=== PATIENT | female | born 1980 | race Caucasian/White ===

== ENCOUNTER 2016-09-01 12:08 | Inpatient (IN) ==
[2016-09-01] MEDS ORDERED: BUTORPHANOL 2 MG/ML VIAL IV PRN (12:48)
[2016-09-01] MEDS ORDERED: MEPERIDINE 50 MG/1 ML VIAL IV PRN (12:48)
[2016-09-01] MEDS ORDERED: ONDANSETRON 4 MG/2 ML VIAL IV PRN ×2 (12:48→20:07)
[2016-09-01 12:50] LABS: Basophils % 0.3 % (0.0-0.8); Eosinophils # 1.8 10*3/uL (0.0-0.87); Eosinophils % 12.7 % (0.00-10.9); Hematocrit 37.9 VOL% (35.7-47.0); Hemoglobin 12.9 GM/DL (12.0-16.0); Immature Granulocytes % 0.8 %; Immature Granulocytes Absolute 0.11 #; Lymphocytes # 2.4 10*3/uL (1.4-4.0); Lymphocytes % 17.1 % (21.3-54.2); Mean Corpuscular Hemoglobin 34 PG (27-34); Mean Corpuscular Volume 99.7 FL (87-102); Mean Platelet Volume 12.1 FL (9.6-12.0); Monocytes # 0.7 10*3/uL (0.11-0.8); Monocytes % 5.3 % (1.7-12.7); Neutrophils % 63.8 % (38.7-73.9); Platelet Count 188 T/CUMM (130-400); Red Cell Distribution Width 12.5 % (9.3-17.3)
[2016-09-01] MEDS ORDERED: MAGNESIUM SULF RIDER 100 ML IV ONE (12:50)
[2016-09-01 12:56] LABS: Apearance,Urine CLEAR (Clear); Bilirubin,Urine Negative (Negative); Blood, Urine Large mg/dL (Negative); Glucose,Urine (UA) Negative (Negative); Ketones,Urine Negative (Negative); Mucus,Urine Occasional /LPF (Occasional); Nitrite,Urine Negative (Negative); Protein,Urine 100 MG/DL; RBC,Urine 152 /HPF (0-4); Squamous Epithelial Cell,Urine Occasional /HPF (0-10); Urine Color Yellow (Yellow); Urine Specific Gravity 1.017 (1.001-1.035); Urine Urobilinogen < 2.0 EU/DL (0.2-1.0); WBC,Urine 2 /HPF (0-6)
--- NOTE | 2016-09-01 12:57 | OB/GYN History & Physical ---
History of Present Illness Chief complaint: with no care, leaking for 2 days, BP up for a while History of present illness: Ms. Lieberman is a 36 year old female Pt reports confirmation of July 22 at [place] [facility] Has Nexplanon for 8 yrs now. Periods monthly. BPs are 180s. Pt denies other symptoms of PIH. Labs pending at this time. Admits marijuana use but denies other drugs or alcohol use. Denies other health problems. Smokes irregularly. 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 - Constitutional General appearance: no acute distress, over weight - Head Head exam: Present: normal inspection, normocephalic - Eye Eye exam: Present: EOMI - Respiratory Respiratory exam: Present: clear to auscultation bilaterally - Cardiovascular Cardiovascular exam: Present: regular rate and rhythm - GI/Abdominal GI/Abdominal exam: Present: soft (gravid uterus midline) - Extremities Exam Extremities exam: Present: edema - Neurological Exam Neurological exam: Present: alert, oriented X3 - Psychiatric Psychiatric exam: Present: normal affect, normal mood - Skin Skin exam: Present: normal color, warm Assessment and Plan (1) PIH ( induced hypertension), antepartum Status: Acute Assessment and plan: PIH labs, start MgSO4 until hypertension clarified. US in progress. Drug screen pending. Further recommendations once we have all results. Current Visit: Yes (2) No care in current in third trimester Status: Acute Current Visit: Yes Results - Labs CBC & BMP: 09/01/16 12:41 Lab Results: I have reviewed the past 24 hour labs
[2016-09-01 13:01] LABS: INR 0.8; PT Patient Result 8.7 SECS; Partial Thromboplastin Time 31.8 SECS (0-40)
[2016-09-01 13:03] LABS: Barbiturates Screen,Urine Negative (Negative); Benzodiazepines Screen,Urine Negative (Negative); Cannabinoid Screen,Urine Positive (Negative); Opiate Screen,Urine Negative (Negative); Phencyclidine Screen,Urine Negative (Negative)
[2016-09-01 13:11] LABS: Band Neutrophils 1 % (0-10); Eosinophils 18 % (0-10); Giant Platelets Few; Hypochromasia Slight; Lymphocytes 17 % (20-55); Platelet Estimate Normal; Segmented Neutrophils 61 % (50-85); Total Cells Counted 100
[2016-09-01 13:21] LABS: Alanine Aminotransferase 24 U/L (13-56); Albumin 2.3 G/DL (3.4-5.0); Alkaline Phosphatase 198 U/L (45-117); Aspartate Amino Transferase 22 U/L (0-37); Bilirubin,Total < 0.39 MG/DL (0.2-1.0); Blood Urea Nitrogen 14 MG/DL (7-18); Calcium 8.3 MG/DL (8.5-10.1); Glucose 90 MG/DL (74-106); Osmolality,Calculated 277.5 MOS/KG (273-304); Potassium 4.8 MMOL/L (3.5-5.1); Sodium 139 MMOL/L (136-145); Total Protein 5.6 G/DL (6.4-8.3); Uric Acid 5.4 MG/DL (2.6-6.0)
[2016-09-01] MEDS ORDERED: MAGNESIUM SULF DRIP 40 GM/1,000 ML ML IV SCH (13:30)
[2016-09-01] MEDS ORDERED: OXYTOCIN/LR 20 UNIT/1,000 ML BAG IV SCH (13:30)
[2016-09-01] MEDS: LACTATED RINGERS 1,000 ML IV SCH ×3 (13:35→18:30)
--- NOTE | 2016-09-01 13:39 | Ultrasound Report ---
History: No care. Rupture of membranes Date: 09/01/2016 Study: Obstetrical ultrasound greater than 14 weeks Comparison exam: No previous this Real-time ultrasound images are captured and archived. There is a single intrauterine fetus in vertex presentation with a heart rate of 138 bpm. The placenta is anterior without previa. There is oligohydramnios with an REENA of 3.1 cm. The maternal cervix is not well seen. There is a three-vessel umbilical cord. The four-chamber heart view, bladder, and partially visualized kidneys are unremarkable. The spine and cord insertion site are not well seen. Intracranial measurements are not submitted, though no gross intracranial abnormality is seen where visualized. There are no masses of the maternal myometrium. The maternal ovaries are not seen because of bowel gas and gestation size. BPD 97 mm or 39 weeks 4 days Head circumference 347 mm or 40 weeks 2 days Abdominal circumference 360 mm or 39 weeks 6 days Femur length 78 mm or 39 weeks 5 days Impression: Single intrauterine fetus in vertex presentation with an ultrasound gestational age of 39 weeks 6 days +/- 20 days, CORNELIO September 02, 2016, and EFW 3918 g +/- 587 g. motion and cardiac activity are noted during real-time sonography There is oligohydramnios with REENA of 3.1 cm PROCEDURE INTERPRETED AT [facility] DEPARTMENT OF RADIOLOGY Final Report Signed by: Dr. Tracy Muniz
[2016-09-01] MEDS: AMPICILLIN INJ 2,000 MG in SODIUM CHLORIDE 0.9% 100 ML IV SCH ×2 (13:45→18:58)
[2016-09-01] MEDS ORDERED: LACTATED RINGERS 500 ML IV ONE (13:54)
[2016-09-01] MEDS ORDERED: LACTATED RINGERS 1,000 ML IV ONE (13:54)
[2016-09-01] MEDS ORDERED: ePHEDrine 50 MG/ML AMP IV PRN (13:54)
[2016-09-01] MEDS ORDERED: LACTATED RINGERS 1,000 ML IV SCH ×2 (14:00)
[2016-09-01] MEDS ORDERED: FAMOTIDINE 20 MG/2 ML VIAL IV ONE (14:18)
[2016-09-01] MEDS ORDERED: CITRIC ACID/SODIUM CITRATE 30 ML UDCUP PO ONE (14:19)
[2016-09-01] MEDS ORDERED: fentaNYL 2 MCG/ROPIV 0.2% EPID 150 ML EPIDURAL ONE (14:46)
[2016-09-01] MEDS ORDERED: miSOPROStol 200 MCG TABLET ONE (19:18)
[2016-09-01] MEDS ORDERED: HYDROCORTISONE 2.5% RECTAL CREAM 30 GM TUBE TOP PRN (20:07)
[2016-09-01] MEDS ORDERED: BISACODYL 10 MG SUPP RECTAL PRN (20:07)
[2016-09-01] MEDS ORDERED: BENZOCAINE 20%/MENTHOL 0.5% SPRAY 56 GM CAN TOP PRN (20:07)
[2016-09-01] MEDS ORDERED: OXYTOCIN/LR 20 UNIT/1,000 ML BAG IV ONE (20:07)
[2016-09-01] MEDS ORDERED: WITCH HAZEL PADS 100/JAR TOP PRN (20:07)
[2016-09-01] MEDS ORDERED: DIPH/TET/ACEL PERT BOOSTER VACCINE 0.5 ML VIAL IM ONE (20:07)
[2016-09-01] MEDS ORDERED: ACETAMINOPHEN 325 MG TABLET PO PRN (20:07)
[2016-09-01] MEDS ORDERED: MEASLES/MUMPS/RUBELLA VACCINE 0.5 ML VIAL SUBCUT ONE (20:07)
[2016-09-01] MEDS ORDERED: LANOLIN 50% CREAM 0.3 OZ TUBE TOP PRN (20:07)
[2016-09-01] MEDS ORDERED: oxyCODONE/ACETAMINOPHEN 5-325 MG TABLET PO PRN (20:07)
[2016-09-01] MEDS ORDERED: RHO(D) IMMUNE GLOBULIN 300 MCG SYRINGE IM ONE (20:07)
--- NOTE | 2016-09-01 20:13 | Operative Note ---
Date of procedure: 09/01/16 Pre-op diagnosis: 1. term with no care; 2. + marijuana Post-op diagnosis: same Procedure: Delivery note. Patient progressed to complete and pushing with labor epidural and Pitocin augmentation and delivered a viable 7#2oz female over intact perineum, right medial labial superficial laceration. Baby was bulb suctioned on the perineum. Cord was doubly clamped and cut. Baby was handed to personnel in attendance. Cord blood was collected and placenta was delivered intact. Figure of 8 stitch of 3-0 chromic to distal aspect of medial labial laceration for hemostasis. Fundus is firm. Estimated blood loss 500 mL. Complications none. Patient is stable and the baby is stable. Anesthesia: epidural Surgeon / Physician: Sangeeta Harrington Estimated blood loss: other (500cc) Specimens: other (placenta to path; cord blood to lab) Condition: stable Disposition: no change Results - Labs CBC & BMP: 09/01/16 12:41 09/01/16 12:41 Discharge Plan - Discharge Medications No Action No Known Home Medications [No Known Home Medications] - Follow Up or Referral - Forms/Instructions
[2016-09-01] MEDS: LABETALOL 200 MG TABLET PO SCH (20:40)
[2016-09-01] MEDS: DOCUSATE SODIUM 100 MG CAPSULE PO SCH (22:01)
[2016-09-01 23:57] LABS: HIV Antigen/Antibody Result Nonreactive (Nonreactive); Hepatitis B Surface Ag Quant 0.15 Index; Hepatitis B Surface Ag Result Negative (Negative)
[2016-09-02] MEDS: IBUPROFEN 800 MG TABLET PO PRN ×2 (04:34→15:49)
[2016-09-02 05:26] LABS: Basophils % 0.2 % (0.0-0.8); Eosinophils # 1.3 10*3/uL (0.0-0.87); Eosinophils % 7.5 % (0.00-10.9); Hematocrit 35.1 VOL% (35.7-47.0); Hemoglobin 12.1 GM/DL (12.0-16.0); Immature Granulocytes % 0.8 %; Immature Granulocytes Absolute 0.14 #; Lymphocytes # 2.9 10*3/uL (1.4-4.0); Lymphocytes % 16.8 % (21.3-54.2); Mean Corpuscular HGB Conc 34.5 GM/DL (32-36); Mean Corpuscular Hemoglobin 34 PG (27-34); Mean Corpuscular Volume 98.3 FL (87-102); Mean Platelet Volume 12.4 FL (9.6-12.0); Monocytes % 5.9 % (1.7-12.7); Neutrophils # 11.7 10*3/uL (1.4-7.4); Neutrophils % 68.8 % (38.7-73.9); Platelet Count 158 T/CUMM (130-400); Red Blood Count 3.57 MC/CUMM (3.8-5.5); Red Cell Distribution Width 12.4 % (9.3-17.3)
--- NOTE | 2016-09-02 07:41 | Anesthesia Post-Op ---
Anesthesia Post OP - Post Ansesthetic Evaluation Patient seen in post op: Yes Resp: within normal limits CV: within normal limits Mental: within normal limits Temp: within normal limits [id number]: within normal limits Nausea and Vomiting: within normal limits Pain: within normal limits
[2016-09-02] MEDS: DOCUSATE SODIUM 100 MG CAPSULE PO SCH ×2 (09:01→20:25)
[2016-09-02] MEDS: LABETALOL 200 MG TABLET PO SCH ×2 (09:02→20:25)
--- NOTE | 2016-09-02 09:20 | OB/GYN Progress Note ---
Assessment and Plan (1) PIH ( induced hypertension), antepartum Status: Acute Assessment and plan: Current Visit: Yes (2) No care in current in third trimester Status: Acute Current Visit: Yes (3) Normal vaginal delivery Status: Acute Assessment and plan: Routine care Current Visit: Yes [employer]IN[employer]IMAL - PN: Subj Interval history: PPD#1 Doing well. Exam [employer]ERIN[employer]IAN [employer]IMAL - Constitutional Vitals: Vital Signs Temp Pulse Resp BP Pulse Ox 09/02/16 09:14 20 09/02/16 08:00 98.2 F 97 H 20 151/86 98 09/02/16 07:54 20 09/02/16 04:00 97.6 F 97 H 18 141/64 99 09/02/16 02:00 18 09/02/16 00:40 99.1 F 92 H 20 152/82 100 09/02/16 00:00 99.1 F 98 H 20 159/76 99 09/01/16 23:40 88 20 145/87 99 09/01/16 22:40 89 20 160/81 99 09/01/16 22:08 83 20 157/85 99 09/01/16 21:40 97.9 F 95 H 18 127/88 99 09/01/16 20:00 97.5 F L 82 18 161/82 09/01/16 16:00 98.0 F 95 H 18 144/83 General appearance: no acute distress, over weight - Head Head exam: Present: normal inspection, normocephalic - Eye Eye exam: Present: EOMI - Respiratory Respiratory exam: Present: clear to auscultation bilaterally - Cardiovascular Cardiovascular exam: Present: regular rate and rhythm - GI/Abdominal GI/Abdominal exam: Present: soft (fundus firm, nontender) - Extremities Exam Extremities exam: Present: normal inspection - Neurological Exam Neurological exam: Present: alert, oriented X3 - Psychiatric Psychiatric exam: Present: normal affect, normal mood - Skin Skin exam: Present: normal color, warm Results - Labs CBC & BMP: 09/02/16 05:12 09/01/16 12:41 Lab Results: I have reviewed the past 24 hour labs
[2016-09-02] MEDS: oxyCODONE/ACETAMINOPHEN 5-325 MG TABLET PO PRN ×2 (15:52→22:29)
[2016-09-02] MEDS ORDERED: PROMETHAZINE 25 MG/1 ML VIAL IM PRN (23:17)
[2016-09-02] MEDS ORDERED: ONDANSETRON 4 MG TABLET PO PRN (23:17)
[2016-09-02 23:26] LABS: Barbiturates Screen,Urine Negative (Negative); Benzodiazepines Screen,Urine Negative (Negative); Cannabinoid Screen,Urine Positive (Negative); Opiate Screen,Urine Negative (Negative); Phencyclidine Screen,Urine Negative (Negative)
[2016-09-03 08:08] VITALS: BP 153/88
[2016-09-03] MEDS: DOCUSATE SODIUM 100 MG CAPSULE PO SCH (08:53)
[2016-09-03] MEDS: LABETALOL 200 MG TABLET PO SCH (08:53)
[2016-09-03] MEDS: IBUPROFEN 800 MG TABLET PO PRN (09:44)
--- NOTE | 2016-09-03 09:50 | Discharge Summary ---
Hospital Course - Hospital Course Hospital Course: Pt presented to L&D with no care. She had without complications. Her course has been unremarkable except that she's done very well. Diagnosis - Discharge Diagnosis (1) PIH ( induced hypertension), antepartum Status: Acute (2) No care in current in third trimester Status: Acute (3) Normal vaginal delivery Status: Acute Specialty Discharge - Follow Up or Referrals Follow up with: Sangeeta Harrington DO [Physician] - Discharge Plan - Discharge Data Disposition: Disch To Home/Self Care Condition at Discharge: Stable Discharge Diet: regular diet Activity: other (pelvic rest x 6 wks) Hygiene: may shower Weight Bearing at Discharge: full weight bearing Driving: no restrictions (if not taking narcotics) Contact your physician if you experience:: fever over 101, Difficulty voiding, Redness or swelling, Nausea/Vomiting, Shortness of breath, Bleeding, pain uncontrolled by pain medications - Discharge Medications New oxyCODONE/ACETAMINOPHEN 5-325 [Percocet 5-325] 1 tablet PO Q6H PRN #10 tablet PRN Reason: Pain Severe (8-10) Ibuprofen Tab [Motrin Tab] 800 mg PO Q6H PRN #30 tablet PRN Reason: Pain Moderate (4-7) - Follow Up or Referral Follow Up: Sangeeta Harrington DO [Physician] - (6 wks ) - Forms/Instructions Instructions: Perineal Care (DC), Bleeding (DC) Exam - Constitutional Vitals: Period Temp Pulse Resp BP Sys/Reyes Pulse Ox Last 24 Hr 97.4 F-98.3 F 80-105 16-20 123-166/71-95 96-100 General appearance: normal weight, no acute distress - Head Head exam: Present: normal inspection, normocephalic - Eye Eye exam: Present: EOMI - Respiratory Respiratory exam: Present: clear to auscultation bilaterally - Cardiovascular Cardiovascular exam: Present: regular rate and rhythm - GI/Abdominal GI/Abdominal exam: Present: soft (fundus firm, nontender) - Extremities Exam Extremities exam: Present: normal inspection - Neurological Exam Neurological exam: Present: alert, oriented X3 - Psychiatric Psychiatric exam: Present: normal affect, normal mood - Skin Skin exam: Present: normal color, warm Discharge Results Labs on day of discharge: Labs from last 24 hours 09/02/16 22:45 Urine Opiates Screen Negative Ur Barbiturates Screen Negative Ur Phencyclidine Scrn Negative U Amphetamine/Methamph Negative U Benzodiazepines Scrn Negative U Cocaine Metab Screen Negative U Cannabinoids Screen Positive H DS: Provider Date of admission: 09/01/16 12:48 Primary care physician: . No PCP Attending physician on admission: Sangeeta Harrington DO Consults: 09/01/16 13:10 Consult to Dietitian [CONS] Routine Reason for Dietitian: Dietary Consult 09/01/16 20:07 Consult to [employer] Architect [CONS] Routine Consult [employer] Architect: Breast Feeding 09/01/16 20:09 Consult to Case Mgmt/Social Srvs [CONS] Routine Reason for Case Mgmt/Social Srvs: Other Consult Comment: no care, positive for cannabinoids Discharging clinician: Sangeeta Harrington DO Expected date of discharge: 09/03/16
[2016-09-03] MEDS ORDERED: BUTALBITAL/ACETAMIN/CAFFEINE 50-325-40 MG TABLET PO ONE (10:52)
[2016-09-03] MEDS ORDERED: SUMAtriptan 6 MG/0.5 ML VIAL SUBCUT STA (10:52)
--- NOTE | 2016-09-04 11:18 | Pathology Report from [facility] ---
[facility] ACCESSION # : [id number] PATIENT NAME : Kerwin Lieberman ORDERING DR : MENA ROA, CLINICAL HX: IUP @ 39.6 wks x late U/S; no care, induced HTN POST-OP DX: Same SPECIMEN INFO: Placenta GROSS DESCRIPTION: Received fresh labeled KERWIN LIEBERMAN is a 647 gm placenta measuring 22.5 x 17.5 x 2.5 cm with an attached accessory lobe measuring 8.0 x 7.5 x 1.0 cm. The membranes are pink alvarado and translucent. The umbilical cord measures 43.0 cm, contains three vessels and is eccentrically inserted. The maternal surface displays hemorrhagic mildly disrupted cotyledons with no abnormalities grossly appreciated upon sectioning. Sections submitted A- membranes and cord, B- and maternal surfaces. DIAGNOSIS FOR KERWIN LIEBERMAN: Three vessel umbilical cord.Unremarkable placental membranes.High placental weight placenta (647 gm) with unremarkable third trimester placental chorionic villi. COLLECTED DATE: 09/02/2016 [facility] REPORT DATE: 09/04/2016 ELECTRONICALLY SIGNED BY: Kaushik Bazzi M.D. 09/04/2016 - 10:51:36 [facility]
--- NOTE | 2016-09-06 03:10 | Pathology Report from [facility] ---
[facility] ACCESSION # : [id number] PATIENT NAME : Kerwin Lieberman ORDERING DR : MENA ROA, CLINICAL HX: IUP @ 39.6 wks x late U/S; no care, induced HTN POST-OP DX: Same SPECIMEN INFO: Placenta GROSS DESCRIPTION: Received fresh labeled KERWIN LIEBERMAN is a 647 gm placenta measuring 22.5 x 17.5 x 2.5 cm with an attached accessory lobe measuring 8.0 x 7.5 x 1.0 cm. The membranes are pink alvarado and translucent. The umbilical cord measures 43.0 cm, contains three vessels and is eccentrically inserted. The maternal surface displays hemorrhagic mildly disrupted cotyledons with no abnormalities grossly appreciated upon sectioning. Sections submitted A- membranes and cord, B- and maternal surfaces. DIAGNOSIS FOR KERWIN LIEBERMAN: Three vessel umbilical cord.Unremarkable placental membranes.High placental weight placenta (647 gm) with unremarkable third trimester placental chorionic villi. COLLECTED DATE: 09/02/2016 [facility] REPORT DATE: 09/04/2016 ELECTRONICALLY SIGNED BY: Kaushik Bazzi M.D. 09/04/2016 - 10:51:36 [facility]
== END 2016-09-03 13:00 | disposition home or self-care (01) | DRG 774 ==
LOC: N.LDOUT 12:08 → N.LD 12:12 → N.OB 21:40
PROVIDERS: ADMIT Obstetrics & Gynecology; ATTEND Obstetrics & Gynecology

== ENCOUNTER 2019-08-25 12:23 | Observation (INO) ==
[2019-08-25] MEDS ORDERED: ONDANSETRON 4 MG/2 ML VIAL IV STA (13:35)
[2019-08-25] MEDS ORDERED: fentaNYL 100 MCG/2 ML VIAL IV STA (13:35)
[2019-08-25] MEDS ORDERED: fentaNYL 100 MCG/2 ML VIAL IV PRN (13:47)
[2019-08-25] MEDS ORDERED: ONDANSETRON 4 MG/2 ML VIAL IV PRN (13:47)
[2019-08-25 13:56] LABS: Basophils % 0.3 % (0.0-0.8); Eosinophils # 0.1 10*3/uL (0.0-0.87); Hematocrit 41.9 VOL% (35.7-47.0); Hemoglobin 13.7 GM/DL (12.0-16.0); Immature Granulocytes % 0.4 %; Immature Granulocytes Absolute 0.05 #; Lymphocytes # 1.5 10*3/uL (1.4-4.0); Lymphocytes % 12.3 % (21.3-54.2); Mean Corpuscular HGB Conc 32.7 GM/DL (32-36); Mean Corpuscular Volume 102.9 FL (87-102); Mean Platelet Volume 10.3 FL (9.6-12.0); Monocytes % 5.9 % (1.7-12.7); Neutrophils % 80.1 % (38.7-73.9); Platelet Count 245 T/CUMM (130-400); Red Blood Count 4.07 MC/CUMM (3.8-5.5); Red Cell Distribution Width 12.1 % (9.3-17.3); White Blood Count 12.4 T/CUMM (4-12)
[2019-08-25 14:06] LABS: PT Patient Result 10.5 SECS (9.8-11.9); Partial Thromboplastin Time 30.6 SECS (23.9-33.8)
[2019-08-25 14:13] LABS: Calcium 8.5 MG/DL (8.5-10.1); Osmolality,Calculated 270.1 MOS/KG (273-304)
[2019-08-25 14:33] LABS: Barbiturates Screen,Urine Negative (Negative); Benzodiazepines Screen,Urine Negative (Negative); Cannabinoid Screen,Urine Positive (Negative); Opiate Screen,Urine Positive (Negative); Phencyclidine Screen,Urine Negative (Negative)
[2019-08-25] MEDS: LACTATED RINGERS 1,000 ML IV SCH (16:24)
[2019-08-25] MEDS: MORPHINE 4 MG/1 ML VIAL IV PRN ×2 (17:30→21:40)
[2019-08-25] MEDS ORDERED: ZALEPLON 5 MG CAPSULE PO PRN (21:24)
[2019-08-26] MEDS: MORPHINE 4 MG/1 ML VIAL IV PRN ×3 (02:19→20:03)
[2019-08-26] MEDS: LACTATED RINGERS 1,000 ML IV SCH (04:53)
[2019-08-26] MEDS ORDERED: BUPIVACAINE MPF 0.5% /EPI 30 ML VIAL ONE (07:12)
[2019-08-26] MEDS ORDERED: DEXAMETHASONE 4 MG/1 ML VIAL ONE ×2 (07:12→09:55)
[2019-08-26] MEDS ORDERED: MIDAZOLAM 2 MG/2 ML VIAL ONE ×2 (07:13→09:55)
[2019-08-26] MEDS ORDERED: fentaNYL 100 MCG/2 ML VIAL ONE ×2 (07:13→09:55)
[2019-08-26] MEDS ORDERED: LIDOCAINE 2% 5 ML VIAL ONE ×2 (07:22→09:54)
[2019-08-26] MEDS ORDERED: MAGNESIUM HYDROXIDE SUSP 30 ML UDCUP PO PRN (08:23)
[2019-08-26] MEDS ORDERED: LACTATED RINGERS 1,000 ML IV SCH ×2 (08:30→09:00)
[2019-08-26] MEDS ORDERED: ceFAZolin 1,000 MG VIAL ONE (08:36)
[2019-08-26] MEDS ORDERED: BACITRACIN OINT 0.9 GM PACK TOP ONE (08:51)
[2019-08-26] MEDS ORDERED: propofoL 200 MG/20 ML VIAL IV ONE (09:54)
[2019-08-26] MEDS ORDERED: ONDANSETRON 4 MG/2 ML VIAL ONE (09:55)
[2019-08-26] MEDS ORDERED: SEVOFLURANE 1 UNIT/15 MINUTE INH ONE (09:55)
[2019-08-26] MEDS: ceFAZolin 2,000 MG in PREMIX 1 EACH IV SCH ×2 (14:15→21:09)
[2019-08-26] MEDS: KETOROLAC 30 MG/1 ML VIAL IV PRN (14:15)
[2019-08-26] MEDS ORDERED: ceFAZolin 2,000 MG in PREMIX 1 EACH IV ONE (17:21)
[2019-08-27] MEDS ORDERED: FONDAPARINUX 2.5 MG/0.5 ML SYRINGE SUBCUT SCH (06:00)
[2019-08-27] MEDS: KETOROLAC 30 MG/1 ML VIAL IV PRN (09:53)
[2019-08-27] MEDS: MORPHINE 4 MG/1 ML VIAL IV PRN (09:54)
[2019-08-27 11:21] VITALS: BP 127/66
== END 2019-08-27 11:49 | disposition home or self-care (01) ==
LOC: N.ED 12:23 → N.EDINP 12:23 → N.3E 16:26
PROVIDERS: ADMIT Orthopaedic Surgery; ATTEND Orthopaedic Surgery